=== PATIENT | female | born 1970 | race Caucasian/White ===

== ENCOUNTER 2021-09-01 10:26 | Emergency (ER) | payer OTHER, SELFPAY ==
[2021-09-01 10:39] VITALS: BP 124/82; PULSE 83; RESP 18; TEMP 36.4; O2SAT 98
--- NOTE | 2021-09-01 10:41 | ED.BACK ---
HPI - Back Pain/Injury General Chief Complaint: Back Pain/Injury Stated Complaint: Lower Back Pain Time Seen by Provider: 09/01/21 10:41 Source: patient and RN notes reviewed Mode of arrival: ambulatory Limitations: no limitations History of Present Illness HPI Narrative: Rachel is a 51-year-old female patient here for right lower back pain today. Patient states that the end of June she had a similar issue on the left. Patient states that 1 week ago she fell out of a chair at school and landed on her bottom. Patient states she painted her deck and 2 days later she woke up with a right back pain. Patient has been using heat and Advil at home. Patient denies loss of bowel or bladder function denies loss of consciousness. Denies any numbness or tingling. Patient states she took 2 Advil this morning. She took Tylenol 500 mg last night. 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 MD elicited complaint: back pain Related Data Home Medications Medication Instructions Recorded Confirmed amitriptyline 25 mg PO DAILY 09/01/21 09/01/21 bupropion HCl 300 mg PO DAILY 09/01/21 09/01/21 losartan-hydrochlorothiazide 1 tablet PO DAILY 09/01/21 09/01/21 Allergies Allergy/AdvReac Type Severity Reaction Status Date / Time No Known Allergies Allergy Unknown Verified 09/01/21 10:36 Review of Systems Review of Systems: CONSTITUTIONAL: Denies body aches, fever, chills, or sweats. EYES: Denies visual changes, redness, or discharge. ENT: Denies rhinorrhea, congestion, sore throat, or otalgia. CARDIOVASCULAR: Denies chest pain, palpitations, or edema. RESPIRATORY: Denies cough or dyspnea. GASTROINTESTINAL: Denies abdominal pain, nausea, vomiting, or diarrhea. GENITOURINARY: Denies dysuria or hematuria. SKIN: Denies rash, itching, or wounds. MUSCULOSKELETAL:+ back pain, denies change in bowel or bladder function, numbness or tingling. NEUROLOGIC: Denies headache, numbness, tingling, or weakness. PSYCH: Denies depression or anxiety. All systems reviewed & are unremarkable except as noted in HPI and below PMFSH Social History Social History Smoking status: Current every day smoker Alcohol intake: current Substance use: never Comments At time of signature, I have reviewed and agree with nursing past medical, surgical, social and family history unless otherwise noted. Please see nursing chart for further information. There is no relevant family history pertinent to the presenting complaint Exam Narrative: GENERAL: Well-appearing, well-nourished, and in no acute distress. HEAD: Normocephalic, atraumatic. EYES: EOMI. No redness or drainage. Conjunctivae normal. ENT: Mucous membranes pink and moist. Nares clear. No rhinorrhea. NECK: Normal AROM. Supple. No lymphadenopathy. CHEST: No respiratory distress. Clear to auscultation. MUSCULOSKELETAL: No bony tenderness; pain with palpation right lumbar area. EXTREMITIES:decreased range of motion with right flexion and extension secondary to pain. No edema. SKIN: Warm, dry, no rash. Capillary refill normal. Normal skin turgor. NEURO: No focal deficits. Alert and oriented x3. Gait steady. PSYCH: Normal affect. No signs of depression or anxiety. Course Vital Signs Vital signs: Vital Signs Temperature 36.4 C 09/01/21 10:39 Pulse Rate 83 09/01/21 10:39 Respiratory Rate 18 09/01/21 10:39 Blood Pressure 124/82 09/01/21 10:39 Pulse Oximetry 98 09/01/21 10:39 Temperature 36.4 C 09/01/21 10:39 Pulse Rate 83 09/01/21 10:39 Respiratory Rate 18 09/01/21 10:39 Blood Pressure 124/82 09/01/21 10:39 Pulse Oximetry 98 09/01/21 10:39 Reviewed MDM - Back Pain/Injury MDM Narrative Medical decision making narrative: Patient was seen and examined by provider patient is able to complete a straight leg raise with no pain to the right or left sciatic area. Patient was painting a deck 2 da
== END 2021-09-01 11:20 | disposition home or self-care (01) ==
PROVIDERS: Emergency Provider Nurse Practitioner Family; PCP Physician Assistant
DX: S39.012A Strain of muscle, fascia and tendon of lower back, initial encounter (principal); W07.XXXA Fall from chair, initial encounter; F17.200 Nicotine dependence, unspecified, uncomplicated; I10 Essential (primary) hypertension; F41.9 Anxiety disorder, unspecified; F32.A Depression, unspecified
CPT/HCPCS: 99213; G0463

== ENCOUNTER 2021-11-11 15:22 | Emergency (ER) | payer OTHER, SELFPAY ==
[2021-11-11 15:34] VITALS: BP 115/78; PULSE 98; RESP 20; TEMP 36.5; O2SAT 97
--- NOTE | 2021-11-11 15:42 | ED.FEMALEGU ---
HPI - Female Genitourinary General Chief complaint: Urogenital-Female Stated complaint: uti complaint Source: patient and RN notes reviewed Mode of arrival: ambulatory History of Present Illness HPI Narrative: According to the patient for the last 3 days she has been having burning with urgency and abdominal cramping. Patient did take Azo at home. The patient denies pyuria hematuria SOB, CP, palpitation, extremity numbness, lightheadedness, dizziness, constipation, diarrhea, chills, or fever. Right positive for UTI Related Data Home Medications Medication Instructions Recorded Confirmed amitriptyline 25 mg PO DAILY 09/01/21 11/11/21 bupropion HCl 300 mg PO DAILY 09/01/21 11/11/21 losartan-hydrochlorothiazide 1 tablet PO DAILY 09/01/21 11/11/21 Allergies Allergy/AdvReac Type Severity Reaction Status Date / Time No Known Allergies Allergy Unknown Verified 11/11/21 15:30 Review of Systems Review of Systems: A 14 organ system Review of Systems was performed and pertinent positives included in the HPI, otherwise remaining ROS is negative. [facility] Family History Family History (Updated 11/11/21 @ 15:43 by MARYCRUZ Wilkerson) Other Family history non-contributory Social History Social History Smoking status: Current every day smoker Alcohol intake: current Substance use: never Exam Narrative: GENERAL: This is a well-nourished, well-developed patient, in no apparent distress. HEAD: normocephalic, atraumatic. EYES: PERRL. Sclera clear/white. Vision is grossly intact. EARS: External ears normal, auditory canals clear and without drainage, TMs normal without perforation. Hearing grossly intact. NOSE: External nose normal with no obvious nasal discharge, nares without redness, no rhinorrhea. THROAT: Mucous membranes moist, posterior pharynx clear. NECK: Neck supple, non-tender without lymphadenopathy, masses or thyromegaly. CARDIOVASCULAR: Regular rate and rhythm without murmurs, gallops, or rubs. RESPIRATORY: Clear to auscultation. Breath sounds equal bilaterally. No wheezes, rales, or rhonchi. GASTROINTESTINAL: Abdomen soft, non-tender, nondistended. Bowel sounds are active. No hepato-splenomegaly, or palpable masses. No guarding. SKIN: warm, intact with no suspicious lesions or rash, good texture and turgor. NEURO: awake, alert, and oriented to person, place and time. There were no obvious focal neurologic abnormalities. Steady gait EXTREMITIES: Normal range of motion. No edema. No calf tenderness. Negative Homans sign bilaterally. BACK: Nontender without deformity or crepitance. No flank tenderness. Course Course Emergency Course: Patient will be treated with Keflex .Bactrim avoided due to interaction with medication Vital Signs Vital signs: Vital Signs Temperature 97.7 F 11/11/21 15:34 Pulse Rate 98 11/11/21 15:34 Respiratory Rate 20 11/11/21 15:34 Blood Pressure 115/78 11/11/21 15:34 Pulse Oximetry 97 11/11/21 15:34 Temperature 97.7 F 11/11/21 15:34 Pulse Rate 98 11/11/21 15:34 Respiratory Rate 20 11/11/21 15:34 Blood Pressure 115/78 11/11/21 15:34 Pulse Oximetry 97 11/11/21 15:34 MDM - Female Genitourinary Differential Diagnosis Differential diagnosis: Likely urinary tract infection, bacterial vaginosis and vaginitis Lab Data Labs: Urine Glucose Trace Reference Range: Negative Urine Bilirubin Negative Reference Range: Negative Urine Ketone Trace Reference Range: Negative Urine Specific [place] 1.030 Reference Range:1.001-1.035 Urine Blood 3+
== END 2021-11-11 15:46 | disposition home or self-care (01) ==
PROVIDERS: Emergency Provider Nurse Practitioner; PCP Physician Assistant
DX: N39.0 Urinary tract infection, site not specified (principal); F17.200 Nicotine dependence, unspecified, uncomplicated
CPT/HCPCS: 81003; 87077; 87086; 87088; 87186; 99213; G0463

== ENCOUNTER 2022-08-27 15:19 | Emergency (ER) | payer OTHER, SELFPAY ==
--- NOTE | 2022-08-27 15:21 | ED.URI ---
HPI - URI/Sore Throat General Chief Complaint: Upper Respiratory Infection Stated Complaint: sorethroat Time Seen by Provider: 08/27/22 15:20 Source: patient Mode of arrival: ambulatory Limitations: no limitations History of Present Illness HPI Narrative: Ms. Rebolledo is a 52-year-old female patient presenting to the clinic today with complaints of sore throat, cough, nasal congestion, and low grade fever x 3 days. 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 Developed chilss/body aches last night. MD elicited complaint: sore throat and nasal congestion Related Data Home Medications Medication Instructions Recorded Confirmed bupropion HCl 300 mg 24 hr tablet, 300 mg PO DAILY 09/01/21 08/27/22 extended release losartan 100 1 tablet DAILY 08/27/22 08/27/22 mg-hydrochlorothiazide 25 mg tablet Allergies Allergy/AdvReac Type Severity Reaction Status Date / Time No Known Allergies Allergy Unknown Verified 08/27/22 15:34 Review of Systems Review of Systems: Pertinent positives per HPI. Patient denies any fever, chills, rash, headache, visual changes, dizziness, cough, runny nose, sore throat, shortness of breath, chest pain, palpitations, nausea, vomiting, diarrhea, constipation, abdominal pain, or any urinary issues. [facility] Family History Family History Other Family history non-contributory Social History Social History Smoking status: Current every day smoker Alcohol intake: current Substance use: never Comments At the time of my signature, I reviewed and agree with the nursing past medical, surgical, social, and family history. There is no relevant family history pertinent to the patient complaint. Exam Narrative: General: Well-developed, well nourished, in no apparent distress Head: Normocephalic, atraumatic Eyes: Pupils equally round and reactive to light bilaterally, EOM intact, sclera and conjunctive clear, no discharge, lids normal Ears: TMs intact and clear, ear canals clear, no drainage, grossly hearing normal. Nose: Nares patent, no discharge, no inflammation, no sinus tenderness. Mouth: Oropharynx without lesions or masses, good dentition, MMM. Neck: Supple, trachea midline, no enlargement of anterior or posterior cervical nodes, no thyroid masses or goiter palpable. Cardio: Regular rate and rhythm, s1 and s2 normal, no murmur appreciated. Resp: Clear to auscultation bilaterally anteriorly and posteriorly, no rhonchi, rales, wheezing or rubs Course Course Emergency Course: Portions of this record may have been created with voice recognition software. Level of Care: Express Care Visit Vital Signs Vital signs: Vital signs reviewed MDM - URI/Sore Throat MDM Narrative Medical decision making narrative: At the time of visit patient is resting comfortably on the exam table COVID, flu, and strep test was negative in the clinic today. I suspect the patient has viral syndrome/pharyngitis. Supportive measures were discussed with the patient she voiced understanding of discharge instructions and agrees to treatment plan. Differential Diagnosis Differential diagnosis: Likely upper respiratory infection, otitis media, sinusitis, viral infection, bronchitis, influenza, pharyngitis and other (covid) Discharge Plan Discharge Clinical Impression: Viral syndrome Pharyngitis Qualifiers: Pharyngitis/tonsillitis etiology: unspecified etiology Qualified Code(s): J02.9 - Acute pharyngitis, unspecified Patient Disposition: Home, Self-Care Condition: Stable Instructions: Antibiotic Form, Pharyngitis (ED), Viral Syndrome (ED) Additional Instructions: Take medications as prescribed-viscous lidocaine COVID, flu, and strep testing was negative in the clinic. We will send strep for culture Increase fluids and stay well hydrated Tylenol/motrin for calvin
[2022-08-27 15:27] VITALS: BP 121/76; PULSE 113; RESP 18; TEMP 37.4; O2SAT 97
== END 2022-08-27 15:55 | disposition home or self-care (01) ==
PROVIDERS: Emergency Provider Nurse Practitioner Family; PCP Physician Assistant
DX: B34.9 Viral infection, unspecified (principal); J02.9 Acute pharyngitis, unspecified; Z20.822 Contact with and (suspected) exposure to COVID-19; F17.200 Nicotine dependence, unspecified, uncomplicated; I10 Essential (primary) hypertension; F41.9 Anxiety disorder, unspecified; F32.A Depression, unspecified
CPT/HCPCS: 87081; 87426; 87804; 87880; 99213; C9803; G0463

== ENCOUNTER 2022-08-31 10:39 | Emergency (ER) | payer OTHER, SELFPAY ==
--- NOTE | ~2022-08-31 | XR_ITS ---
EXAMINATION: XR chest 2V DATE: 08/31/2022 11:43 INDICATION: Cough TECHNIQUE: PA and lateral views of the chest are obtained. COMPARISON: 03/17/2016 FINDINGS: The lungs are free of acute opacities. No pleural effusion or pneumothorax. The cardiomedia stinal silhouette is normal. There is mild thoracic spondylosis. IMPRESSION: 1. No acute cardiopulmonary abnormality. Reviewed, dictated and finalized at location A.
[2022-08-31 11:08] VITALS: BP 141/89; PULSE 100; RESP 18; TEMP 35.9; O2SAT 96
--- NOTE | 2022-08-31 11:29 | ED.URI ---
HPI - URI/Sore Throat General Chief Complaint: Upper Respiratory Infection Stated Complaint: chest congestion Time Seen by Provider: 08/31/22 11:29 Source: patient and RN notes reviewed Mode of arrival: ambulatory Limitations: no limitations History of Present Illness HPI Narrative: 52-year-old female presented for complaint of productive cough of green sputum and chest congestion for about 5 days. She was seen at the [facility] 08/27 after experiencing URI symptoms for 2 days. Tested negative for strep, covid, and flu. She was given supportive treatments and has taken them as directed. She states it is settling in her chest and she think she has bronchitis which she gets every year. She is a smoker, half pack per day. Denies shortness of breath, wheezing, nausea, vomiting, fevers or chills. She has an albuterol inhaler but does not use it. MD elicited complaint: cough Related Data Home Medications Medication Instructions Recorded Confirmed bupropion HCl 300 mg 24 hr tablet, 300 mg PO DAILY 09/01/21 08/31/22 extended release losartan 100 1 tablet DAILY 08/27/22 08/31/22 mg-hydrochlorothiazide 25 mg tablet Allergies Allergy/AdvReac Type Severity Reaction Status Date / Time No Known Allergies Allergy Unknown Verified 08/31/22 11:23 Review of Systems Review of Systems: CONSTITUTIONAL: Denies malaise, chills, sweats, fever EYES: Denies visual changes, redness, or discharge ENT: Reports rhinorrhea, congestion, denies sinus pain, otalgia, sore throat CARDIOVASCULAR: Denies chest pain, palpitations, edema RESPIRATORY: Reports cough, post nasal drainage. Denies dyspnea GASTROINTESTINAL: Denies abdominal pain, nausea, vomiting, diarrhea MUSCULOSKELETAL: Denies myalgia NEUROLOGIC: Denies headache [facility] Family History Family History Other Family history non-contributory Social History Social History Smoking status: Current every day smoker Alcohol intake: current Substance use: never Exam Narrative: GENERAL: Ill-appearing, nontoxic EYES: PERRLA, conjunctivae clear ENT: Mucous membranes moist. TMs pearly gallego with dull light reflex bilaterally; no tragal tenderness. Hoarse voice. Oropharynx erythematous without lesions or exudate, no drooling, no trismus, uvula midline. No tripod positioning, muffled voice, soft palate or pharyngeal wall bulging CHEST: Clear and diminished to auscultation, breath sounds equal. No wheezing, rhonchi, rales, or stridor. No respiratory distress, speaks in full sentences. HEART: Regular rate and rhythm. No murmur heard. SKIN: Warm, dry, no rash. NEURO: Alert and oriented x3. Course Course Emergency Course: Patient is aware of diagnosis, understands and agrees to treatment plan. Anticipatory guidance given. Patient agrees to follow-up as directed and is aware of reasons to seek care at the emergency department. Portions of this record may have been created with voice recognition software Level of Care: Express Care Visit Vital Signs Vital signs: Vital Signs Temperature 96.7 F L 08/31/22 11:08 Pulse Rate 100 08/31/22 11:08 Respiratory Rate 18 08/31/22 11:08 Blood Pressure 141/89 H 08/31/22 11:08 Pulse Oximetry 96 08/31/22 11:08 Oxygen Delivery Room Air 08/31/22 11:08 Temperature 96.7 F L 08/31/22 11:08 Pulse Rate 100 08/31/22 11:08 Respiratory Rate 18 08/31/22 11:08 Blood Pressure 141/89 H 08/31/22 11:08 Pulse Oximetry 96 08/31/22 11:08 Oxygen Delivery Room Air 08/31/22 11:08 reviewed MDM - URI/Sore Throat MDM Narrative Medical decision making narrative: Result of chest x-ray reviewed with patient. Advised supportive measures and signs/symptoms to go to the ER. She is aware abx are not generally indicated for bronchitis, and is advised to try the steroid and cough meds before starting abx. States s
== END 2022-08-31 12:21 | disposition home or self-care (01) ==
PROVIDERS: Emergency Provider Nurse Practitioner Family; PCP Physician Assistant
DX: J40 Bronchitis, not specified as acute or chronic (principal); F17.200 Nicotine dependence, unspecified, uncomplicated
CPT/HCPCS: 71046; 99213; G0463

== ENCOUNTER 2022-12-12 14:05 | Emergency (ER) | payer OTHER, SELFPAY ==
--- NOTE | 2022-12-12 14:09 | ED.URI ---
HPI - URI/Sore Throat General Chief Complaint: Upper Respiratory Infection Stated Complaint: Sore Throat Time Seen by Provider: 12/12/22 14:07 Source: patient Mode of arrival: ambulatory Limitations: no limitations History of Present Illness HPI Narrative: Ms. Rebolledo is a 52-year-old female patient presenting to the clinic today with complaints of sore throat and fever times 2-3 days. She reports she has had strep exposure and gets strep frequently. MD elicited complaint: fever and sore throat Related Data Home Medications Medication Instructions Recorded Confirmed bupropion HCl 300 mg 24 hr tablet, 300 mg PO DAILY 09/01/21 12/12/22 extended release losartan 100 1 tablet DAILY 08/27/22 12/12/22 mg-hydrochlorothiazide 25 mg tablet Allergies Allergy/AdvReac Type Severity Reaction Status Date / Time No Known Allergies Allergy Unknown Verified 12/12/22 14:21 Review of Systems Review of Systems: Pertinent positives per HPI. Patient denies any rash, headache, visual changes, dizziness, cough, shortness of breath, chest pain, palpitations, nausea, vomiting, diarrhea, constipation, abdominal pain, or any urinary issues. [facility] Family History Family History Other Family history non-contributory Social History Social History Smoking status: Current every day smoker Alcohol intake: current Substance use: never Comments At the time of my signature, I reviewed and agree with the nursing past medical, surgical, social, and family history. There is no relevant family history pertinent to the patient complaint. Exam Narrative: General: Well-developed, well nourished, in no apparent distress Head: Normocephalic, atraumatic Eyes: Pupils equally round and reactive to light bilaterally, EOM intact, sclera and conjunctive clear, no discharge, lids normal Ears: TMs intact and clear, ear canals clear, no drainage, grossly hearing normal. Nose: Nares patent, clear nasal discharge, no inflammation, no sinus tenderness. Mouth: Oral pharynx without lesions or masses, good dentition, MMM. Oropharynx red with bilateral tonsil swelling and white exudate Neck: Supple, trachea midline, enlargement of anterior cervical nodes, no thyroid masses or goiter palpable. Cardio: Regular rate and rhythm, s1 and s2 normal, no murmur appreciated. Resp: Clear to auscultation bilaterally, no rhonchi, rales, wheezing or rubs Course Course Emergency Course: Portions of this record may have been created with voice recognition software. Level of Care: Express Care Visit Vital Signs Vital signs: Vital Signs Temperature 37.0 C 12/12/22 14:24 Pulse Rate 108 H 12/12/22 14:24 Respiratory Rate 18 12/12/22 14:24 Blood Pressure 120/75 12/12/22 14:24 Pulse Oximetry 96 12/12/22 14:24 Oxygen Delivery Room Air 12/12/22 14:24 Temperature 37.0 C 12/12/22 14:24 Pulse Rate 108 H 12/12/22 14:24 Respiratory Rate 18 12/12/22 14:24 Blood Pressure 120/75 12/12/22 14:24 Pulse Oximetry 96 12/12/22 14:24 Oxygen Delivery Room Air 12/12/22 14:24 Vital signs reviewed MDM - URI/Sore Throat MDM Narrative Medical decision making narrative: At the time of visit patient is resting comfortably on the exam table. Strep screen was obtained and was positive in the clinic today. I will place patient on amoxicillin to treat strep pharyngitis. Supportive measures were discussed with the patient she voiced understanding discharge instructions and agrees to treatment plan. Differential Diagnosis Differential diagnosis: Likely upper respiratory infection, otitis media, sinusitis, viral infection, bronchitis, influenza, pharyngitis and other (COVID) Lab Data Labs: Strep Screen Positive Group A Strep *(Reference Range: Negative)* Discha
[2022-12-12 14:24] VITALS: BP 120/75; PULSE 108; RESP 18; TEMP 37; O2SAT 96
== END 2022-12-12 14:38 | disposition home or self-care (01) ==
PROVIDERS: Emergency Provider Nurse Practitioner Family; PCP Physician Assistant
DX: J02.0 Streptococcal pharyngitis (principal); F17.200 Nicotine dependence, unspecified, uncomplicated; I10 Essential (primary) hypertension; F41.9 Anxiety disorder, unspecified; F32.A Depression, unspecified
CPT/HCPCS: 87880; 99213; G0463

== ENCOUNTER 2023-03-07 15:21 | Emergency (ER) | payer OTHER, SELFPAY ==
[2023-03-07 15:45] VITALS: BP 128/75; PULSE 112; RESP 18; TEMP 37.5; O2SAT 97
--- NOTE | 2023-03-07 15:51 | ED.GENADULT ---
HPI - General Adult General Chief complaint: Upper Respiratory Infection Stated complaint: sorethroat Time Seen by Provider: 03/07/23 15:51 Source: patient Mode of arrival: ambulatory Limitations: no limitations History of Present Illness HPI narrative: 52-year-old female patient presents to the [facility] with complaints of a sore throat, fever and swollen lymph nodes since yesterday. Patient states she is very prone to strep and does get it several times a year. 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 Related Data Home Medications Medication Instructions Recorded Confirmed bupropion HCl 300 mg 24 hr tablet, 300 mg PO DAILY 09/01/21 12/12/22 extended release losartan 100 1 tablet DAILY 08/27/22 12/12/22 mg-hydrochlorothiazide 25 mg tablet Allergies Allergy/AdvReac Type Severity Reaction Status Date / Time No Known Allergies Allergy Unknown Verified 12/12/22 14:21 Review of Systems Review of Systems: CONSTITUTIONAL: positive fever, chills, or sweats. EYES: Denies visual changes, redness, or discharge. ENT: Denies rhinorrhea, congestion, Positivesore throat, or otalgia. CARDIOVASCULAR: Denies chest pain, palpitations, or edema. RESPIRATORY: Denies cough or dyspnea. GASTROINTESTINAL: Denies abdominal pain, nausea, vomiting, or diarrhea. GENITOURINARY: Denies dysuria or hematuria. SKIN: Denies rash or itching. MUSCULOSKELETAL: Denies back pain, joint pain, or myalgia. NEUROLOGIC: Denies headache, numbness, or weakness. PSYCHIATRIC: Denies anxiety or depression. PMFSH Past Medical History Medical History (Updated 03/07/23 @ 16:00 by CATHERINE Woodall) Bronchitis Depression History of strep sore throat Family History Family History Other Family history non-contributory Social History Social History Smoking status: Current every day smoker Alcohol intake: current Substance use: never Comments at the time of my signature I agree with nursing past medical history, surgical, social, and family history. There is no relevant family history pertinent to the presenting complaint. Exam Narrative: GENERAL: Well-appearing, well-nourished, and in no acute distress. HEAD: Normocephalic, atraumatic. EYES: PERRLA and EOMI. ENT: Nares clear, no rhinorrhea or epistaxis. Mucous membranes moist. posterior pharynx with 4+ tonsillar enlargement, erythema and large white exudates noted bilateral tonsils. Bilateral TMs are clear no erythema or foreign bodies the canal NECK: Supple. positive cervical lymphadenopathy CHEST: Clear to auscultation. No respiratory distress. HEART: Regular rate and rhythm. No murmur heard. Normal peripheral pulses. ABDOMEN: Soft, nontender, nondistended, normal active bowel sounds. EXTREMITIES: Normal range of motion. No edema. SKIN: Warm, dry, no rash. NEURO: No focal deficits. Alert and oriented x3. Course Course Level of Care: Express Care Visit Vital Signs Vital signs: Vital Signs Temperature 37.5 C 03/07/23 15:45 Pulse Rate 112 H 03/07/23 15:45 Respiratory Rate 18 03/07/23 15:45 Blood Pressure 128/75 03/07/23 15:45 Pulse Oximetry 97 03/07/23 15:45 Oxygen Delivery Room Air 03/07/23 15:45 Temperature 37.5 C 03/07/23 15:45 Pulse Rate 112 H 03/07/23 15:45 Respiratory Rate 18 03/07/23 15:45 Blood Pressure 128/75 03/07/23 15:45 Pulse Oximetry 97 03/07/23 15:45 Oxygen Delivery Room Air 03/07/23 15:45 Vital signs reviewed. Medical Decision Making MDM Narrative Medical decision making narrative: discussed with patient that her strep test was negative however given her symptoms, her history as well as her presenting examination of very large tonsils with exudate we will go ahead and treat with antibiotics today. We will also do treat her with some steroids to help inflammation and pain. Patient feroz
== END 2023-03-07 16:00 | disposition home or self-care (01) ==
PROVIDERS: Emergency Provider Nurse Practitioner Family; PCP Physician Assistant
DX: J03.90 Acute tonsillitis, unspecified (principal); F17.200 Nicotine dependence, unspecified, uncomplicated; F32.A Depression, unspecified
CPT/HCPCS: 87081; 87880; 99213; G0463